=== PATIENT | male | born 1980 | race African-American/Black ===

== ENCOUNTER 2018-08-29 09:54 | Emergency (ER) | payer OTHER ==
[~2018-08-29] VITALS: Ht 165.1 cm; Wt 102.5 kg
[2018-08-29 11:06] VITALS: Ht 165.1 cm; Wt 102.5 kg
--- NOTE | 2018-08-29 11:39 | ERD ---
ER Documentation Chief Complaint Chief Complaint C/O N/V SINCE LAST SUNDAY, SENT FROM CLINIC FOR EVAL ROS All systems reviewed and are negative except as per history of present illness. Allergies Allergies: Coded Allergies: No Known Allergy (Unverified , 08/29/18) FmHx Family History: diabetes Physical Exam Vitals Vital Signs Date Temp Pulse Resp B/P (MAP) Pulse Ox O2 O2 Flow FiO2 Time Delivery Rate 08/29/18 97.8 89 18 149/67 99 11:06 (94) Physical Exam Const: No acute distress Head: Atraumatic Eyes: Normal Conjunctiva ENT: Normal External Ears, Nose and Mouth. Neck: Full range of motion. No meningismus. Resp: Clear to auscultation bilaterally Cardio: Regular rate and rhythm, no murmurs Abd: Soft, non tender, non distended. Normal bowel sounds Skin: No petechiae or rashes Back: No midline or flank tenderness Ext: No cyanosis, or edema Neur: Awake and alert Psych: Normal Mood and Affect Result Diagram: 08/29/18 1213 08/29/18 1213 Results 24 hrs Laboratory Tests Test 08/29/18 11:58 08/29/18 12:13 Urine Color YELLOW Urine Clarity CLOUDY Urine pH 5.0 Urine Specific [place] 1.021 Urine Ketones NEGATIVE mg/dL Urine Nitrite NEGATIVE mg/dL Urine Bilirubin NEGATIVE mg/dL Urine Urobilinogen NEGATIVE mg/dL Urine Leukocyte Esterase NEGATIVE Shelly/ul Urine Microscopic RBC 1 /HPF Urine Microscopic WBC 1 /HPF Urine Squamous Epithelial Cells FEW /HPF Urine Mucus FEW /HPF Urine Hemoglobin NEGATIVE mg/dL Urine Glucose NEGATIVE mg/dL Urine Total Protein NEGATIVE mg/dl White Blood Count 8.2 10^3/ul Red Blood Count 5.62 10^6/ul Hemoglobin 12.5 g/dl Hematocrit 40.3 % Mean Corpuscular Volume 71.7 fl Mean Corpuscular Hemoglobin 22.2 pg Mean Corpuscular Hemoglobin Concent 31.0 g/dl Red Cell Distribution Width 14.1 % Platelet Count 351 10^3/UL Mean Platelet Volume 10.8 fl Immature Granulocytes % 0.200 % Neutrophils % 63.9 % Lymphocytes % 24.5 % Monocytes % 10.9 % Eosinophils % 0.4 % Basophils % 0.1 % Nucleated Red Blood Cells % 0.0 /100WBC Immature Granulocytes # 0.020 10^3/ul Neutrophils # 5.2 10^3/ul Lymphocytes # 2.0 10^3/ul Monocytes # 0.9 10^3/ul Eosinophils # 0.0 10^3/ul Basophils # 0.0 10^3/ul Nucleated Red Blood Cells # 0.0 10^3/ul Sodium Level 132 mmol/L Potassium Level 3.0 mmol/L Chloride Level 86 mmol/L Carbon Dioxide Level 23 mmol/L Anion Gap 23 Blood Urea Nitrogen 44 mg/dl Creatinine 2.50 mg/dl Est Glomerular Filtrat Rate mL/min 29 mL/min Glucose Level 103 mg/dl Calcium Level 10.1 mg/dl Total Bilirubin 0.2 mg/dl Direct Bilirubin 0.00 mg/dl Indirect Bilirubin 0.2 mg/dl Aspartate Amino Transf (AST/SGOT) 32 IU/L Alanine Aminotransferase (ALT/SGPT) 33 IU/L Alkaline Phosphatase 80 IU/L Total Protein 9.3 g/dl Albumin 5.1 g/dl Globulin 4.20 g/dl Albumin/Globulin Ratio 1.21 Lipase 201 U/L Current Medications Medications Dose Sig/Zackery Start Time Status Last (Trade) Ordered Route PRN Stop Time Admin Dose Reason Admin Sodium 1,000 ml @ Q1H STAT 08/29/18 DC 08/29/18 Chloride 1,000 mls/hr IV 11:49 12:47 08/29/18 12:48 Ondansetron 4 mg ONCE STAT 08/29/18 DC 08/29/18 HCl (Zofran IV 11:49 12:47 Inj) 08/29/18 11:51 Sodium 1,000 ml @ Q1H ONCE 08/29/18 08/29/18 Chloride 1,000 mls/hr IV 13:30 13:51 08/29/18 14:29 Potassium 40 meq ONCE STAT 08/29/18 DC 08/29/18 Chloride PO 13:15 13:51 (Klor-Con 20) 08/29/18 13:19 Departure Diagnosis: Primary Impression: Abdominal pain Additional Impressions: Diabetic gastroparesis Hypokalemia Condition: Stable Additional Instructions: Thank you very much for allowing us to participate in your care. Your health and safety is our top priority at [facility]. Call your primary care doctor TOMORROW for an appointment during the next 2-4 days and bring all the information and medications prescribed. Have prescriptions filled and follow precisely the directions on the label. If the symptoms get worse and your provider is unavailable, return to the Emergency Department immediately. JUVENTINO LOCKWOOD MD Aug 29, 2018 11:39
[2018-08-29] MEDS ORDERED: SOD CHLORIDE 0.9% 1,000 ML IV STA (11:49)
[2018-08-29] MEDS ORDERED: ONDANSETRON 4 MG INJ IV STA (11:49)
[2018-08-29] MEDS ORDERED: POTASSIUM CHLORIDE (SR) 20 MEQ TAB PO STA (13:15)
[2018-08-29] MEDS ORDERED: SOD CHLORIDE 0.9% 1,000 ML IV ONE (13:30)
[2018-08-29] MEDS ORDERED: METO10TA92 PO (14:27)
[2018-08-29] MEDS ORDERED: POTA20TA15 PO (14:27)
[2018-08-29 14:45] VITALS: BP 122/73; PULSE 98; RESP 18
== END 2018-08-29 14:45 | disposition home or self-care (01) ==
LOC: FTE 09:54
DX: E11.43 Type 2 diabetes mellitus with diabetic autonomic (poly)neuropathy (principal); E87.6 Hypokalemia
CPT/HCPCS: 36415; 74176; 80053; 81001; 83690; 85025; 96361; 96374; J2405; J7030; Z7502; Z7610

== ENCOUNTER 2019-01-11 07:47 | Emergency (ER) | payer OTHER ==
[~2019-01-11] VITALS: Ht 165.1 cm; Wt 102.4 kg
[~2019-01-11 07:47] MED LIST: METO10TA92 PO; POTA20TA15 PO
[2019-01-11 07:54] VITALS: BP 142/74; PULSE 121; RESP 18; Ht 165.1 cm; Wt 102.4 kg
[2019-01-11] MEDS ORDERED: CEPH-443 PO (08:05)
--- NOTE | 2019-01-11 08:10 | ERD ---
ER Documentation Chief Complaint Chief Complaint SMALL ULCER TO BACK OF LEFT LOWER LEG FOR 3 DAYS. BS 163. HPI 38-year-old male presenting for pain to his left calf. He states he was seen in urgent care yesterday and a prescription for antibiotic cream was written however he has not used it. Patient states that about an infection. He is diabetic. Denies any fevers. Denies other medical problems. NKDA. Surgical history denies. Social history denies ROS All systems reviewed and are negative except as per history of present illness. Medications Home Meds Active Scripts Cephalexin* (Keflex*) 500 Mg Capsule, 500 MG PO QID for 7 Days, CAP Prov:SOY MULTANI PA-C 01/11/19 Potassium Chloride* (K-Dur*) 20 Meq Tab.prt.sr, 20 MEQ PO DAILY, #20 TAB.SA Prov:JUVENTINO LOCKWOOD MD 08/29/18 Metoclopramide* (Reglan*) 10 Mg Tablet, 10 MG PO TID PRN for NAUSEA AND/OR VOMITING, #10 TAB Prov:JUVENTINO LOCKWOOD MD 08/29/18 Allergies Allergies: Coded Allergies: No Known Allergy (Unverified , 08/29/18) PMhx/Soc History of Surgery: No Anesthesia Reaction: No Hx Miscellaneous Medical Probl: Yes (HTN, GERD, Hypercholesterolemia,DM) Hx Alcohol Use: No Hx Substance Use: No Hx Tobacco Use: No FmHx Family History: No diabetes, No coronary disease, No other Physical Exam Vitals Vital Signs Date Temp Pulse Resp B/P (MAP) Pulse Ox O2 O2 Flow FiO2 Time Delivery Rate 01/11/19 97.4 121 18 142/74 98 07:54 (96) Physical Exam GENERAL: The patient is well-appearing, well-nourished, in no acute distress CHEST: Clear to auscultation bilaterally. There are no rales, wheezes or rhonchi. HEART: Regular rate and rhythm. No murmurs, clicks, rubs or gallops. EXTREMITIES: Equal pulses bilaterally. There is no peripheral clubbing, cyanosis or edema. No focal swelling or erythema. Full range of motion. NEUROLOGIC: Alert and oriented. Cranial nerves II through XII intact. Motor strength in all 4 extremities with 5 out of 5 strength. Sensation grossly intact. Normal speech and gait. SKIN: Small erythematous area noted to the left lateral calf with mild warmth. Scab noted but no pustule or purulence. No lymphatic streaking and no fluctuance. Results 24 hrs Laboratory Tests Test 01/11/19 07:53 Bedside Glucose 163 mg/dL Procedures/MDM MDM: 38-year-old male presenting with pain to his left calf. There is a small area of erythema and I will treat with oral antibiotics. There is no indication for incision and drainage. Patient is told to clean with soap and water and take medication as prescribed. Patient is told to return if symptoms change or worsens. All questions answered at discharge Departure Diagnosis: Primary Impression: Abscess Condition: Stable Patient Instructions: Abscess, Antiobiotic Treatment Only Referrals: [facility] YOU HAVE RECEIVED A MEDICAL SCREENING EXAM AND THE RESULTS INDICATE THAT YOU DO NOT HAVE A CONDITION THAT REQUIRES URGENT TREATMENT IN THE EMERGENCY DEPARTMENT. FURTHER EVALUATION AND TREATMENT OF YOUR CONDITION CAN WAIT UNTIL YOU ARE SEEN IN YOUR DOCTORS OFFICE WITHIN THE NEXT 1-2 DAYS. IT IS YOUR RESPONSIBILITY TO MAKE AN APPOINTMENT FOR FOLOW-UP CARE. IF YOU HAVE A PRIMARY DOCTOR --you should call your primary doctor and schedule an appointment IF YOU DO NOT HAVE A PRIMARY DOCTOR YOU CAN CALL OUR PHYSICIAN REFERRAL HOTLINE AT IF YOU CAN NOT AFFORD TO SEE A PHYSICIAN YOU CAN CHOSE FROM THE FOLLOWING [facility] [address] [facility]. [facility] [address] [facility] [facility] [address] [facility] [facility] [address] [facility]. [facility] [address] [facility]. [facility]. [address] Additional Instructions: FOLLOW UP WITH YOUR PRIMARY CARE PHYSICIAN TOMORROW.Return to this facility if you are not improving as expected. SOY MULTANI PA-C Jan 11, 2019 08:10
== END 2019-01-11 08:58 | disposition home or self-care (01) ==
LOC: FTE 07:47
DX: L02.416 Cutaneous abscess of left lower limb (principal); I10 Essential (primary) hypertension; E11.9 Type 2 diabetes mellitus without complications
CPT/HCPCS: 82962; Z7502; 99283